=== PATIENT | male | born 1985 | race Caucasian/White ===

== ENCOUNTER 2017-03-14 07:01 | Emergency (ER) | payer MEDICAID ==
[~2017-03-14] VITALS: Ht 5787.1 cm; Wt 60.0 kg
[~2017-03-14 07:01] MED LIST: CYCL-1 PO; NO HOME MEDS
[2017-03-14 07:35] VITALS: BP 116/69
== END 2017-03-14 07:37 | disposition home or self-care (01) ==
LOC: ER 07:02
DX: G89.29 Other chronic pain (principal); R10.13 Epigastric pain; F12.10 Cannabis abuse, uncomplicated; F15.10 Other stimulant abuse, uncomplicated; F11.10 Opioid abuse, uncomplicated; Z90.5 Acquired absence of kidney; Z59.0 Homelessness
CPT/HCPCS: 99281

== ENCOUNTER 2017-11-23 18:53 | Emergency (ER) | payer MEDICAID ==
[~2017-11-23] VITALS: Ht 175.3 cm; Wt 57.2 kg
[~2017-11-23 18:53] MED LIST changes: +CEPH500C5 PO; +HYDR-569 PO; +SULF1TAB49 PO
[2017-11-23 19:09] VITALS: BP 141/81
[2017-11-23] MEDS ORDERED: normal saline 1000ML IV soln IVB STA (19:54)
[2017-11-23 19:56] LABS: BASOPHILS % (AUTO) 0.2 % (0-1); EOSINOPHILS # (AUTO) 0.2 X10'3 (0-0.9); EOSINOPHILS % (AUTO) 1.7 % (0-6); HEMATOCRIT 32.9 % (42.0-52.0); HEMOGLOBIN 10.9 g/dl (14.0-17.9); LYMPHOCYTES # (AUTO) 0.8 X10'3 (1.1-4.8); LYMPHOCYTES % (AUTO) 6.7 % (21-51); MEAN CORPUSCULAR HEMOGLOBIN 24.6 PG (27.0-31.0); MEAN CORPUSCULAR VOLUME 74.5 FL (78-98); MEAN PLATELET VOLUME 7.3 FL (7.4-10.4); MONOCYTES # (AUTO) 0.7 X10'3 (0-0.9); MONOCYTES % (AUTO) 5.8 % (2-12); NEUTROPHILS # (AUTO) 10.1 X10'3 (1.8-7.7); NEUTROPHILS % (AUTO) 85.6 % (42-75); PLATELET COUNT 438 X10'3 (140-440); RED BLOOD COUNT 4.41 X10'6 (4.70-6.10); RED CELL DISTRIBUTION WIDTH 18.2 % (11.5-14.5); WHITE BLOOD COUNT 11.8 X10'3 (4.5-11.0)
[2017-11-23 20:04] LABS: CLARITY,URINE CLEAR (Clear); COLOR,URINE YELLOW (Yellow); GLUCOSE, URINE NEGATIVE (Neg); KETONES,URINE 15 mg/dl (Neg); LEUKOCYTE ESTERASE ,URINE NEGATIVE (Neg); NITRITES, URINE NEGATIVE (Neg); OCCULT BLOOD,URINE NEGATIVE (Neg); PROTEIN,URINE 30 mg/dl (Neg); UA COLLECTION TYPE CLN CATCH MIDSTREAM
[2017-11-23 20:07] LABS: PROTHROMBIN TIME 10.7 SECONDS (9.0-12.0)
[2017-11-23 20:10] LABS: ALANINE AMINOTRANSFERASE 41 U/L (12-78); ALBUMIN 3.1 G/DL (3.4-5.0); ALBUMIN/GLOBULIN RATIO 0.7 (1.1-1.5); ALKALINE PHOSPHATASE 117 IU/L (46-116); ANION GAP 9 (8-16); ASPARTATE AMINO TRANSFERASE 27 U/L (10-37); BILIRUBIN,TOTAL 1.9 MG/DL (0.1-1.0); BLOOD UREA NITROGEN 21 MG/DL (7-18); BUN/CREATININE RATIO 15.2 (5.4-32.0); CHLORIDE 98 MMOL/L (99-107); CREATININE 1.38 MG/DL (0.60-1.10); GLUCOSE 117 MG/DL (70-104); POTASSIUM 4.4 MMOL/L (3.5-5.1); SODIUM 134 MMOL/L (135-145); TOTAL CARBON DIOXIDE 27.2 MMOL/L (24-32); TOTAL PROTEIN 7.7 G/DL (6.4-8.2); eGFR 61 ML/MIN
[2017-11-23 20:24] LABS: BACTERIA,URINE 1+ /HPF (Neg); RBC,URINE 0-2 /HPF (0-2); SQUAMOUS EPITHELIAL CELL,UR FEW /LPF (FEW)
[2017-11-23] MEDS ORDERED: morphine 4 MG/ML inj SYRINge IM ONE (20:40)
[2017-11-23] MEDS ORDERED: famotidine/PF 10 mg/ml inj IV ONE (21:30)
[2017-11-23] MEDS ORDERED: ondansetron/PF 4mg/2ml inj IV ONE (21:30)
== END 2017-11-23 21:38 | disposition home or self-care (01) ==
LOC: ER 18:53
DX: T81.89XA Other complications of procedures, not elsewhere classified, initial encounter (principal); R10.9 Unspecified abdominal pain; F12.90 Cannabis use, unspecified, uncomplicated; F15.90 Other stimulant use, unspecified, uncomplicated; F11.90 Opioid use, unspecified, uncomplicated; Z56.0 Unemployment, unspecified; Z98.890 Other specified postprocedural states; Z90.49 Acquired absence of other specified parts of digestive tract; Z59.0 Homelessness; Y92.9 Unspecified place or not applicable
CPT/HCPCS: 36415; 80053; 81001; 85025; 85610; 87088; 96372; 96374; 96375; 99284; J2270; J2405; J3490; J7030

== ENCOUNTER 2018-03-26 14:30 | Emergency (ER) | payer MEDICAID ==
[~2018-03-26] VITALS: Ht 175.3 cm; Wt 56.0 kg
[~2018-03-26 14:30] MED LIST changes: +HYDR-4383 PO; -HYDR-569 PO; -SULF1TAB49 PO
[2018-03-26 15:07] LABS: BASOPHILS % (AUTO) 0.4 % (0-1); EOSINOPHILS # (AUTO) 0.1 X10'3 (0-0.9); EOSINOPHILS % (AUTO) 0.9 % (0-6); HEMATOCRIT 36.8 % (42.0-52.0); HEMOGLOBIN 11.6 g/dl (14.0-17.9); LYMPHOCYTES # (AUTO) 1.2 X10'3 (1.1-4.8); LYMPHOCYTES % (AUTO) 16.5 % (21-51); MEAN CORPUSCULAR HGB CONC 31.4 % (33.0-36.5); MEAN CORPUSCULAR VOLUME 76.5 FL (78-98); MEAN PLATELET VOLUME 7.3 FL (7.4-10.4); MONOCYTES # (AUTO) 0.4 X10'3 (0-0.9); MONOCYTES % (AUTO) 5.1 % (2-12); NEUTROPHILS # (AUTO) 5.4 X10'3 (1.8-7.7); NEUTROPHILS % (AUTO) 77.1 % (42-75); PLATELET COUNT 563 X10'3 (140-440); RED BLOOD COUNT 4.82 X10'6 (4.70-6.10); RED CELL DISTRIBUTION WIDTH 18.5 % (11.5-14.5)
[2018-03-26 15:34] LABS: ALANINE AMINOTRANSFERASE 35 U/L (12-78); ALBUMIN 3.3 G/DL (3.4-5.0); ALBUMIN/GLOBULIN RATIO 0.7 (1.1-1.5); ALKALINE PHOSPHATASE 135 IU/L (46-116); ANION GAP 11 (8-16); ASPARTATE AMINO TRANSFERASE 15 U/L (10-37); BILIRUBIN,TOTAL 0.4 MG/DL (0.1-1.0); BLOOD UREA NITROGEN 13 MG/DL (7-18); BUN/CREATININE RATIO 9.4 (5.4-32.0); CHLORIDE 101 MMOL/L (99-107); CREATININE 1.39 MG/DL (0.60-1.10); GLUCOSE 108 MG/DL (70-104); POTASSIUM 3.9 MMOL/L (3.5-5.1); SODIUM 141 MMOL/L (135-145); TOTAL CARBON DIOXIDE 29.3 MMOL/L (24-32); TOTAL PROTEIN 7.9 G/DL (6.4-8.2); eGFR 60 ML/MIN
[2018-03-26 16:04] LABS: PARTIAL THROMBOPLASTIN TIME 28 SECONDS (22-32); PROTHROMBIN TIME 10.1 SECONDS (9.0-12.0)
[2018-03-26] MEDS ORDERED: diphenhydrAMINE 50 mg/ml inj IV ONE (16:45)
[2018-03-26] MEDS ORDERED: metoclopramide 5 mg/ml inj IV ONE (16:45)
[2018-03-26] MEDS ORDERED: normal saline 1000ML IV soln IVB ONE (16:45)
[2018-03-26] MEDS ORDERED: ketorolac tromethamine 15mg/ml inj. IV ONE (16:45)
[2018-03-26 17:16] LABS: LIPASE 138 U/L (73-393)
[2018-03-26] MEDS ORDERED: ONDA4TAB6 PO (18:49)
[2018-03-26] MEDS ORDERED: POLY17PO10 PO (18:49)
[2018-03-26 19:00] VITALS: BP 104/65
--- NOTE | 2018-03-26 19:00 | NUR ---
While providing discharge instructions, patient requesting pain medication Rx. Educated patient regarding process of constipation and risks of analgesics with constipation. Patient became angry, stating that he was "tired of people telling me that its constipation when something is going on". He further stated that he had been seen in multiple ER visits without a "better diagnosis". Asked and denied that he has f/u with a specialist. Encouraged patient to f/u with PCP for possible refer to specialist. Patient continues to verbalize dissatisfaction with not being given a "definitive diagnosis" regarding his complaints. Educated patient, hayder tyson, regarding nature of emergency room, limtations of the emergency room, and the need to follow-up with PCP for further care and treatment. Patient states, "well I'm going to gabriela the doctor and this hospital for not giving me an actual diagnosis, this [facility] has fucked up too many times".
== END 2018-03-26 19:00 | disposition home or self-care (01) ==
LOC: ER 14:31
DX: R10.13 Epigastric pain (principal); R10.12 Left upper quadrant pain; K59.00 Constipation, unspecified; R11.0 Nausea; F12.90 Cannabis use, unspecified, uncomplicated; F15.90 Other stimulant use, unspecified, uncomplicated; F11.90 Opioid use, unspecified, uncomplicated; Z90.49 Acquired absence of other specified parts of digestive tract; Z79.899 Other long term (current) drug therapy; Z56.0 Unemployment, unspecified; Z59.0 Homelessness
CPT/HCPCS: 36415; 71045; 80053; 83690; 84145; 85025; 85610; 85730; 87040; 96374; 96375; 99284; J1200; J1885; J2765; J7030

== ENCOUNTER → 2018-03-27 | Emergency (ER) | payer MEDICAID ==
[~2018-03-27] MED LIST changes: +LORazepam 2 mg/ml vial IV ONE; +ONDA4TAB6 PO; +POLY17PO10 PO; +haloperidol lactate 5mg/ml inj IM ONE; +iohexol 300mg/ml 100ml inj. ONE; +normal saline 1000ML IV soln IVB ONE
[2018-03-27 09:59] LABS: CLARITY,URINE CLEAR (Clear); COLOR,URINE YELLOW (Yellow); GLUCOSE, URINE NEGATIVE (Neg); KETONES,URINE NEGATIVE (Neg); LEUKOCYTE ESTERASE ,URINE NEGATIVE (Neg); NITRITES, URINE NEGATIVE (Neg); OCCULT BLOOD,URINE SMALL (Neg); PROTEIN,URINE NEGATIVE (Neg); UROBILINOGEN,URINE 0.2 E.U/dL (0.2-1.0)
[2018-03-27 10:01] LABS: UA COLLECTION TYPE CLN CATCH MIDSTREAM
[2018-03-27 10:05] LABS: BASOPHILS % (AUTO) 0.4 % (0-1); EOSINOPHILS # (AUTO) 0.1 X10'3 (0-0.9); EOSINOPHILS % (AUTO) 1.4 % (0-6); HEMATOCRIT 34.4 % (42.0-52.0); HEMOGLOBIN 10.9 g/dl (14.0-17.9); LYMPHOCYTES % (AUTO) 15.4 % (21-51); MEAN CORPUSCULAR HGB CONC 31.6 % (33.0-36.5); MEAN PLATELET VOLUME 7.3 FL (7.4-10.4); MONOCYTES # (AUTO) 0.4 X10'3 (0-0.9); MONOCYTES % (AUTO) 5.9 % (2-12); NEUTROPHILS % (AUTO) 76.9 % (42-75); PLATELET COUNT 441 X10'3 (140-440); RED BLOOD COUNT 4.53 X10'6 (4.70-6.10); RED CELL DISTRIBUTION WIDTH 18.6 % (11.5-14.5); WHITE BLOOD COUNT 6.6 X10'3 (4.5-11.0)
[2018-03-27 10:08] LABS: BACTERIA,URINE NONE SEEN /HPF (Neg); SQUAMOUS EPITHELIAL CELL,UR FEW /LPF (FEW); WBC,URINE NONE SEEN /HPF (0-4)
[2018-03-27 10:09] LABS: MUCUS STRANDS NONE SEEN /LPF (Neg)
[2018-03-27 10:16] LABS: ALANINE AMINOTRANSFERASE 32 U/L (12-78); ALBUMIN 2.9 G/DL (3.4-5.0); ALBUMIN/GLOBULIN RATIO 0.7 (1.1-1.5); ALKALINE PHOSPHATASE 119 IU/L (46-116); ANION GAP 11 (8-16); ASPARTATE AMINO TRANSFERASE 17 U/L (10-37); BILIRUBIN,TOTAL 0.4 MG/DL (0.1-1.0); BLOOD UREA NITROGEN 14 MG/DL (7-18); BUN/CREATININE RATIO 12.8 (5.4-32.0); CALCIUM 8.5 MG/DL (8.5-10.1); CHLORIDE 102 MMOL/L (99-107); CREATININE 1.09 MG/DL (0.60-1.10); GLUCOSE 110 MG/DL (70-104); LIPASE 94 U/L (73-393); SODIUM 140 MMOL/L (135-145); TOTAL CARBON DIOXIDE 27.3 MMOL/L (24-32); TOTAL PROTEIN 6.9 G/DL (6.4-8.2); eGFR 79 ML/MIN
[2018-03-27 12:04] VITALS: BP 125/74
== END | disposition home or self-care (01) ==
LOC: ER 09:17
DX: G89.29 Other chronic pain (principal); R10.12 Left upper quadrant pain; F12.90 Cannabis use, unspecified, uncomplicated; F15.90 Other stimulant use, unspecified, uncomplicated; F11.90 Opioid use, unspecified, uncomplicated; Z90.49 Acquired absence of other specified parts of digestive tract; Z98.890 Other specified postprocedural states; Z59.0 Homelessness; Z56.0 Unemployment, unspecified; Z79.2 Long term (current) use of antibiotics; Z79.899 Other long term (current) drug therapy
CPT/HCPCS: 36415; 74177; 80053; 81001; 83690; 85025; 96372; 96374; 99284; J1630; J2060; J7030; Q9967

== ENCOUNTER 2021-12-15 23:56 | Emergency (ER) | payer MEDICAID ==
[~2021-12-15] VITALS: Ht 175.3 cm; Wt 47.1 kg
[~2021-12-15 23:56] MED LIST changes: -CEPH500C5 PO; -LORazepam 2 mg/ml vial IV ONE; -POLY17PO10 PO; -haloperidol lactate 5mg/ml inj IM ONE; -iohexol 300mg/ml 100ml inj. ONE; -normal saline 1000ML IV soln IVB ONE
[2021-12-16] MEDS ORDERED: acetaminophen 325mg tablet PO ONE (00:20)
[2021-12-16] MEDS ORDERED: iohexol 300mg/ml 100ml inj. ONE (00:23)
[2021-12-16 00:34] LABS: BASOPHILS # (AUTO) 0.1 X10'3 (0-0.2); BASOPHILS % (AUTO) 0.6 % (0-1); EOSINOPHILS # (AUTO) 0.1 X10'3 (0-0.9); EOSINOPHILS % (AUTO) 1.6 % (0-6); HEMATOCRIT 38.9 % (42.0-52.0); HEMOGLOBIN 13.1 g/dl (14.0-17.9); LYMPHOCYTES # (AUTO) 1.8 X10'3 (1.1-4.8); MEAN CORPUSCULAR HEMOGLOBIN 29.2 PG (27.0-31.0); MEAN CORPUSCULAR HGB CONC 33.6 g/dL (33.0-36.5); MEAN CORPUSCULAR VOLUME 86.6 FL (78-98); MEAN PLATELET VOLUME 6.8 FL (7.4-10.4); MONOCYTES # (AUTO) 0.6 X10'3 (0-0.9); MONOCYTES % (AUTO) 6.4 % (2-12); NEUTROPHILS # (AUTO) 6.1 X10'3 (1.8-7.7); NEUTROPHILS % (AUTO) 70.4 % (42-75); PLATELET COUNT 468 X10'3 (140-440); RED BLOOD COUNT 4.48 X10'6 (4.70-6.10); RED CELL DISTRIBUTION WIDTH 15.9 % (11.5-14.5); WHITE BLOOD COUNT 8.7 X10'3 (4.5-11.0)
[2021-12-16 00:44] LABS: ALANINE AMINOTRANSFERASE 21 U/L (12-78); ALBUMIN 3.5 G/DL (3.4-5.0); ALBUMIN/GLOBULIN RATIO 0.9 (1.1-1.5); ALKALINE PHOSPHATASE 92 IU/L (46-116); AMYLASE 87 U/L (25-115); ANION GAP 11 (8-16); ASPARTATE AMINO TRANSFERASE 16 U/L (10-37); BILIRUBIN,TOTAL 0.3 MG/DL (0.1-1.0); BLOOD UREA NITROGEN 15 MG/DL (7-18); BUN/CREATININE RATIO 12.1 (5.4-32.0); CALCIUM 8.8 MG/DL (8.5-10.1); CHLORIDE 102 MMOL/L (99-107); CREATININE 1.24 MG/DL (0.60-1.10); GLUCOSE 123 MG/DL (70-104); LIPASE 111 U/L (73-393); MAGNESIUM 2.4 MG/DL (1.5-2.4); POTASSIUM 3.8 MMOL/L (3.5-5.1); SODIUM 141 MMOL/L (135-145); TOTAL CARBON DIOXIDE 27.8 MMOL/L (24-32); TOTAL PROTEIN 7.5 G/DL (6.4-8.2); eGFR 67 ML/MIN
[2021-12-16 00:46] VITALS: BP 114/75
[2021-12-16] MEDS ORDERED: morphine 4 MG/ML inj SYRINge IV ONE ×2 (01:35→03:30)
--- NOTE | 2021-12-16 03:27 | NUR ---
patient crying in bed provider notified , verbal given by provider for 4 mg morphine ivp once
== END 2021-12-16 04:52 | disposition home or self-care (01) ==
LOC: ER 23:56
DX: R10.12 Left upper quadrant pain (principal); F15.10 Other stimulant abuse, uncomplicated; F12.10 Cannabis abuse, uncomplicated; Z59.00 Homelessness unspecified; Z56.0 Unemployment, unspecified; Z90.49 Acquired absence of other specified parts of digestive tract; Z79.899 Other long term (current) drug therapy
CPT/HCPCS: 36415; 74177; 80053; 82150; 83690; 83735; 85025; 96374; 96376; 99285; J2270; J3490; J7030; Q9967; 96375

== ENCOUNTER 2022-01-30 19:47 | Emergency (ER) | payer MEDICAID ==
[~2022-01-30] VITALS: Ht 175.3 cm; Wt 63.0 kg
[2022-01-30 20:04] VITALS: BP 131/76
[2022-01-30] MEDS ORDERED: sulfamethoxazole/trimethoprim DS (800/160mg) tablet PO ONE (21:55)
[2022-01-30] MEDS ORDERED: cephalexin 500mg capsule PO ONE (21:55)
[2022-01-30] MEDS ORDERED: SULF1TAB49 PO (21:57)
[2022-01-30] MEDS ORDERED: CEPH500C81 PO (21:57)
== END 2022-01-30 22:26 | disposition home or self-care (01) ==
LOC: ER 19:48
DX: L02.414 Cutaneous abscess of left upper limb (principal); F12.10 Cannabis abuse, uncomplicated; F15.10 Other stimulant abuse, uncomplicated; Z59.00 Homelessness unspecified; Z56.0 Unemployment, unspecified; Z79.899 Other long term (current) drug therapy
CPT/HCPCS: 99283; A6258; A6449

== ENCOUNTER 2022-02-03 16:18 | Emergency (ER) | payer MEDICAID ==
[~2022-02-03] VITALS: Ht 175.3 cm; Wt 63.0 kg
[~2022-02-03 16:18] MED LIST changes: +CEPH500C81 PO; -CYCL-1 PO; -HYDR-4383 PO; -NO HOME MEDS; -ONDA4TAB6 PO; +SULF1TAB49 PO
[2022-02-03 17:09] VITALS: BP_SYST 124
[2022-02-03 18:00] LABS: BASOPHILS # (AUTO) 0.1 X10'3 (0-0.2); EOSINOPHILS # (AUTO) 0.1 X10'3 (0-0.9); HEMATOCRIT 40.8 % (42.0-52.0); HEMOGLOBIN 13.5 g/dl (14.0-17.9); LYMPHOCYTES # (AUTO) 2.4 X10'3 (1.1-4.8); MEAN CORPUSCULAR HGB CONC 33.1 g/dL (33.0-36.5); MEAN PLATELET VOLUME 6.5 FL (7.4-10.4); MONOCYTES # (AUTO) 0.6 X10'3 (0-0.9); NEUTROPHILS # (AUTO) 11.7 X10'3 (1.8-7.7); RED BLOOD COUNT 4.65 X10'6 (4.70-6.10); WHITE BLOOD COUNT 14.9 X10'3 (4.5-11.0)
[2022-02-03 18:01] LABS: BASOPHILS % (AUTO) 0.6 % (0-1); LYMPHOCYTES % (AUTO) 16.3 % (21-51); MEAN CORPUSCULAR VOLUME 87.7 FL (78-98); MONOCYTES % (AUTO) 3.8 % (2-12); NEUTROPHILS % (AUTO) 78.3 % (42-75); PLATELET COUNT 737 X10'3 (140-440); RED CELL DISTRIBUTION WIDTH 15.1 % (11.5-14.5)
[2022-02-03 18:22] LABS: ALANINE AMINOTRANSFERASE 32 U/L (12-78); ALBUMIN 3.3 G/DL (3.4-5.0); ALBUMIN/GLOBULIN RATIO 0.6 (1.1-1.5); ALKALINE PHOSPHATASE 129 IU/L (46-116); ANION GAP 11 (8-16); ASPARTATE AMINO TRANSFERASE 17 U/L (10-37); BILIRUBIN,TOTAL 0.2 MG/DL (0.1-1.0); BLOOD UREA NITROGEN 14 MG/DL (7-18); BUN/CREATININE RATIO 13.1 (5.4-32.0); CALCIUM 9.2 MG/DL (8.5-10.1); CHLORIDE 101 MMOL/L (99-107); CREATININE 1.07 MG/DL (0.60-1.10); GLUCOSE 98 MG/DL (70-104); POTASSIUM 4.2 MMOL/L (3.5-5.1); SODIUM 140 MMOL/L (135-145); TOTAL CARBON DIOXIDE 28.2 MMOL/L (24-32); TOTAL PROTEIN 8.4 G/DL (6.4-8.2); eGFR 79 ML/MIN
[2022-02-03 21:30] LABS: CLARITY,URINE CLOUDY (Clear); COLOR,URINE YELLOW (Yellow); GLUCOSE, URINE NEGATIVE (Neg); KETONES,URINE NEGATIVE (Neg); LEUKOCYTE ESTERASE ,URINE TRACE (Neg); NITRITES, URINE NEGATIVE (Neg); OCCULT BLOOD,URINE NEGATIVE (Neg); PROTEIN,URINE NEGATIVE (Neg); UROBILINOGEN,URINE 0.2 E.U/dL (0.2-1.0)
[2022-02-03 21:35] LABS: UA COLLECTION TYPE VOIDED
[2022-02-03] MEDS ORDERED: ONDA4TAB12 PO (21:36)
[2022-02-03 21:47] LABS: URINE AMPHETAMINE SCREEN POSITIVE (Neg); URINE BARBITUATE SCREEN NEGATIVE (Neg); URINE BENZODIAZEPINES SCREEN NEGATIVE (Neg); URINE CANNABINOID SCREEN POSITIVE (Neg); URINE COCAINE SCREEN NEGATIVE (Neg); URINE METHADONE SCREEN NEGATIVE (Neg); URINE OPIATE SCREEN NEGATIVE (Neg); URINE PHENCYCLIDINE SCREEN NEGATIVE (Neg)
[2022-02-03 21:51] LABS: MUCUS STRANDS FEW /LPF (Neg); SQUAMOUS EPITHELIAL CELL,UR MODERATE /LPF (FEW); WBC,URINE TNTC /HPF (0-4)
[2022-02-03 21:52] LABS: BACTERIA,URINE FEW /HPF (Neg); CAL OXALATE CRYSTALS 3+ /HPF (NEGATIVE); RBC,URINE 0-2 /HPF (0-2); TRANSITIONAL EPI CELLS,URINE FEW /HPF
== END 2022-02-03 21:41 | disposition home or self-care (01) ==
LOC: ER 16:18
DX: R11.2 Nausea with vomiting, unspecified (principal); Z20.822 Contact with and (suspected) exposure to COVID-19; R11.0 Nausea; F17.200 Nicotine dependence, unspecified, uncomplicated; F12.10 Cannabis abuse, uncomplicated; F15.10 Other stimulant abuse, uncomplicated; Z59.00 Homelessness unspecified; Z56.0 Unemployment, unspecified; Z90.49 Acquired absence of other specified parts of digestive tract; Z79.899 Other long term (current) drug therapy
CPT/HCPCS: 36415; 80053; 80305; 81001; 84145; 85025; 87088; 87502; 87503; 87635; 93005; 99284; C9803

== ENCOUNTER 2022-09-28 05:59 | Emergency (ER) | payer MEDICAID ==
[~2022-09-28 05:59] MED LIST changes: -CEPH500C81 PO; +ONDA4TAB12 PO; -SULF1TAB49 PO
== END 2022-09-28 06:18 | disposition left against medical advice (07) ==
LOC: ER 05:59
DX: R10.9 Unspecified abdominal pain (principal); Z53.21 Procedure and treatment not carried out due to patient leaving prior to being seen by health care provider

== ENCOUNTER 2023-04-29 10:47 | Emergency (ER) | payer MEDICAID ==
[~2023-04-29] VITALS: Ht 175.3 cm; Wt 56.7 kg
[2023-04-29 10:50] VITALS: BP 179/104; PULSE 126; RESP 16; TEMP 98; O2SAT 99
== END 2023-04-29 11:08 | disposition left against medical advice (07) ==
LOC: ER 10:47
DX: R07.81 Pleurodynia (principal); Z53.21 Procedure and treatment not carried out due to patient leaving prior to being seen by health care provider
CPT/HCPCS: 99281

== ENCOUNTER 2024-07-27 19:05 | Emergency (ER) | payer SELFPAY ==
[~2024-07-27] VITALS: Ht 180.3 cm; Wt 74.0 kg
[~2024-07-27 19:05] MED LIST changes: +ONDA-243 PO; -ONDA4TAB12 PO
--- NOTE | 2024-07-27 19:15 | Physician Documentation ---
History of Present Illness ~ Stated Complaint: VOMITING Time Seen by MD: 19:10 OK to notify your PCP?: No Primary Medical Doctor: mario [facility] HPI This is a 39-year-old residential challenged gentleman who was brought to us from [place] for evaluation of generalized weakness. He states that for the last 24 hours he has been experiencing weakness, dizziness, and diarrhea. Most recent bowel movement was immediately prior to arrival that he described �came out like butter�. No palliating or aggravating factors for his weakness were elicited but he does feel that it began after he got food poisoning from eating [employer]. This is similar to prior foot poisoning. Denies any fever, chills, chest pain, or abdominal pain. He smokes �occasionally� and he does drugs also �occasionally� however he would not specify how often of the occasions. Medication Reconciliation Allergies: Coded Allergies: No Known Allergies (Unverified , 07/27/24) Scheduled PRN ONDANSETRON ODT 4mg tablet (Ondansetron Odt), 1 TABLET PO Q6H PRN for nausea/vomiting Past Medical History Past Medical History: *GI/HEPATOBILIARY*, Psychosis Past Surgical History: abdominal surgery, cholecystectomy, other Other Past Surgical History: nephrectomy Alcohol Use: None Drug Use: marijuana, methamphetamine, heroin Lives In: Homeless Occupation: unemployed Review of Systems ROS 10 point review of systems was performed and unless noted above in HPI is negative for acute process/complaint. Physical Exam Physical Exam Physical examination: GENERAL: Awake, alert, oriented, GCS 15, no apparent distress, non-toxic appe aring, answers questions, follows commands appropriately. Disheveled gentleman with obvious stigmata of homelessness. HEENT: Atraumatic, normocephalic, pupils equal, extraocular muscles intact Active gross movements, sclerae anicteric, mucus membranes moist, no stridor. NECK: Midline, no JVD CARDIOVASCULAR: Good skin perfusion without evidence of pallor, mottling. PULMONARY: Nonlabored, symmetric chest rise, no audible wheezing, no accessory muscle use, no respiratory distress, speaking in full sentences. GASTROINTESTINAL: Not distended. NEUROLOGIC: Lucid with normal mental status. Normal facial symmetry. Moves all extremities symmetrically and with purpose. No truncal ataxia. Speech is fluid without evidence of dysarthria or aphasia, no focal deficits appreciated. EXTREMITIES: Acute deformities Skin: warm, dry PSYCHIATRIC: Normal affect, normal insight, normal concentration. Focused exam: [] Progress Results/Orders Results/Orders Orders - NISHANT COYNE DO Hs Troponin I W Calculations (07/27/24 20:20) Urinalysis (07/27/24 20:27) Drug Screen, Urine (07/27/24 20:27) Completed Orders - NISHANT COYNE DO Cbc/Diff (07/27/24 19:13) PHOS (07/27/24 19:13) MG (07/27/24 19:13) Hs Troponin I W Calculations (07/27/24 19:13) CMP (07/27/24 19:13) Normal Saline 1000ml (Sodium Chloride 10 (07/27/24 20:20) Normal Saline 1000ml (Sodium Chloride 10 (07/27/24 20:20) PBNP (07/27/24 19:30) BMP (07/28/24 00:20) Medications Received in ER Medications (Trade) Dose Ordered Sig/Jimi Route PRN Reason Start Time Stop Time Status Last Admin Dose Admin Sodium Chloride 1,000 ml @ 1,000 mls/hr ONCE ONCE IV 07/27/24 20:20 07/27/24 21:19 DC 07/27/24 23:30 1,000 MLS/HR Sodium Chloride 1,000 ml @ 1,000 mls/hr ONCE ONCE IV 07/27/24 20:20 07/27/24 21:19 DC 07/27/24 22:40 1,000 MLS/HR Vital Signs 07/27/24 07/27/24 07/27/24 07/27/24 19:39 22:20 22:40 23:30 Temp 98.6 Pulse 102 128 88 Resp 20 16 B/P (MAP) 156/98 98/67 (77) 108/68 (81) Pulse Ox 100 98 O2 Flow Rate 0 07/28/24 07/28/24 00:30 01:33 Pulse 92 87 Resp 14 15 B/P (MAP) 104/64 (77) 97/66 (76) Pulse Ox 96 97 O2 Flow Rate 0 0 Laboratory Tests Test 07/27/24 19:30 07/28/24 00:43 White Blood Count 7.9 Red Blood Count 5.15 Hemoglobin 11.9 L Hematocrit 38.2 L Mean Corpuscular Volume 74.1 L Mean Corpuscular Hemoglobin 23.1 L Mean Corpuscular Hemoglobin Concent 31.2 L Red Cell Distribution Width 18.7 H Platelet Count 880 H Mean Platelet Volume 7.3 L Neutrophils (%) (Auto) 57.0 Lymphocytes (%) (Auto) 31.8 Monocytes (%) (Auto) 10.3 Eosinophils (%) (Auto) 0.2 Basophils (%) (Auto) 0.7 Neutrophils # (Auto) 4.5 Lymphocytes # (Auto) 2.5 Monocytes # (Auto) 0.8 Eosinophils # (Auto) 0.0 Basophils # (Auto) 0.1 CBC Comment Platelet Estimate Increased Large Platelets Few Red Blood Cell Morphology Perf Basophilic Stippling Anisocytosis 3+ Microcytosis 1+ Macrocytosis Few Sodium Level 148 H 146 H Potassium Level 4.1 2.9 *L Chloride Level 93 L 99 Carbon Dioxide Level 30.9 39.6 H Anion Gap 24 H 7 L Blood Urea Nitrogen 27 H 27 H Creatinine 3.73 H 2.91 H Estimated GFR/1.73 m2 18 25 BUN/Creatinine Ratio 7.2 L 9.3 L Glucose Level 147 H 101 Calcium Level 9.5 7.6 L Phosphorus Level 9.8 H Magnesium Level 2.6 H Total Bilirubin 1.0 Aspartate Amino Transf (AST/SGOT) 14 Alanine Aminotransferase (ALT/SGPT) 19 Alkaline Phosphatase 99 Troponin I High Sensitivity 12 Pro-B-Type Natriuretic Peptide 250 H Total Protein 7.5 Albumin 3.3 L 2.5 L Globulin 4.2 Albumin/Globulin Ratio 0.8 L Chemistry Comments Medical Decision Making Findings Facility Status: ED Holds, [facility] process The plan was discussed with the patient, who demonstrates clear understanding of the plan and is in agreement with the plan unless otherwise noted in the chart. All questions have been answered, all concerns were addressed unless otherwise documented. I was available throughout their ED stay for frequent reassessment and questions. Differential Diagnoses (considered and possible or likely): [Hypoglycemia, dehydration, electrolyte derangement, viral gastroenteritis, highly unlikely to represent acute intra-abdominal process requiring surgical intervention] ??Differential Diagnoses (considered and unlikely, not requiring evaluation currently): [No evidence of traumatic injury] MDM Data Please see HPI for the following: Independent Historians and external Records Review. Historian: [Patient] Independent Historians: ?[EMS] Medication Management: [Reviewed medication list] Social History and determinants: [Reviewed] Please see the body of the note for the following: Any independent interpretations of ECG, imaging studies. All vitals signs/haemodynamics, ordered tests were independently reviewed and interpreted by myself. Nursing triage complaint and vitals reviewed, additional nursing notes were reviewed as available and I agree unless otherwise noted or documented in contradiction in the chart Vital Signs: Independently reviewed Labs: Independently interpreted Imaging: Independently interpreted Old Medical Records: Independently reviewed, see HPI for relevant summary and information Pulse Oximetry: [99%] interpreted as [normal on room air] by me Additionally notably showing: [Hemodynamically stable. Laboratory workup notable for severe ALLYSON with a creatinine of 3.7 compared to one as his baseline in 2022.] Repeat metabolic panel shows marked improvement of creatinine. Most likely this is related to dehydration. Tests considered but not ordered include: [Imaging does not appear to be necessary] Social Determinants of Health Impact: Patient was evaluated in [facility] [place] access to healthcare due to below par ratio of patient to medical providers. [] Comorbid Conditions Impacting Present Evaluation and Care/Treatment: [Methamphetamine abuse] Management Discussions with other Healthcare Providers: [] Treatment and Disposition Medication Management (Given or considered): [Fluid resuscitation was provided for treatment of clinically and/or laboratory apparent dehydration.]. See EMR f or details Consideration for Hospitalization/Escalation/Deescalation of Care: Admission for observation has been considered, [however the patient is able to tolerate p.o., their symptoms are controlled, they are able to rely on oral medications, and their chief complaint/diagnosis can be managed on outpatient basis.] ?ED Course:?[No clinical deterioration.] ?Shared decision making: Patient is hemodynamically stable for discharge home with follow with their primary care provider. [ ] Specific and cautious return precautions provided and discussed with full understanding. Any incidental findings were also discussed and follow up recommendations given. [] All questions answered. Patient/family were able to verbalize back return precautions. Patient/family agree to plan. Copies of imaging and laboratory studies were provided. Code status:?FULL Please see the full Electronic Medical Record for full details of nursing documentation, medications list, other records of complete past medical history and conditions, vital signs, laboratory studies, and any radiologic study interpretations by radiologists. Portions of this note were completed using [employer] dictation software and as a result there may exist minor errors in spelling. I have reviewed elements of past family and social history and agree as included in note. Departure Disposition: 01 HOME / SELF CARE / HOMELESS Impression: Primary Impression: Acute kidney injury Additional Impressions: Generalized weakness Aggressive behavior Nausea Dehydration Condition: Improved Discharge Instructions: Acute Kidney Injury, Adult, Dehydration, Adult Additional Instructions: You need to make sure that you hydrate adequately, or your kidneys we will suffer irreparable damage and you will end up on dialysis. Please consider stopping using drugs. Referrals: NO PRIMARY CARE PROVIDER (PCP) Education Educated: Patient Educated regarding: diagnosis, treatment, prognosis, need for follow up Signature Scribe Signature: No scribe Attestation: This note accurately reflects clinical decisions, work performed by myself, DO STANFORD Quintanilla NICHOLAS M DO July 27, 2024 19:15
[2024-07-27 19:39] VITALS: TEMP 98.6
[2024-07-27 19:45] LABS: BASOPHILS # (AUTO) 0.1 X10'3 (0-0.2); EOSINOPHILS % (AUTO) 0.2 % (0-6); LYMPHOCYTES # (AUTO) 2.5 X10'3 (1.1-4.8); MEAN PLATELET VOLUME 7.3 FL (7.4-10.4); MONOCYTES # (AUTO) 0.8 X10'3 (0-0.9)
[2024-07-27 19:46] LABS: BASOPHILS % (AUTO) 0.7 % (0-1); HEMATOCRIT 38.2 % (42.0-52.0); HEMOGLOBIN 11.9 g/dl (14.0-17.9); LYMPHOCYTES % (AUTO) 31.8 % (21-51); MEAN CORPUSCULAR HEMOGLOBIN 23.1 PG (27.0-31.0); MEAN CORPUSCULAR HGB CONC 31.2 g/dL (33.0-36.5); MEAN CORPUSCULAR VOLUME 74.1 FL (78-98); MONOCYTES % (AUTO) 10.3 % (2-12); NEUTROPHILS # (AUTO) 4.5 X10'3 (1.8-7.7); PLATELET COUNT 880 X10'3 (140-440); RED BLOOD COUNT 5.15 X10'6 (4.70-6.10); RED CELL DISTRIBUTION WIDTH 18.7 % (11.5-14.5); WHITE BLOOD COUNT 7.9 X10'3 (4.5-11.0)
[2024-07-27 20:09] LABS: ALBUMIN 3.3 G/DL (3.4-5.0); ALBUMIN/GLOBULIN RATIO 0.8 (1.1-1.5); ALKALINE PHOSPHATASE 99 IU/L (46-116); ANION GAP 24 (8-16); BLOOD UREA NITROGEN 27 MG/DL (7-18); BUN/CREATININE RATIO 7.2 (10.0-20.0); CALCIUM 9.5 MG/DL (8.5-10.1); CHLORIDE 93 MMOL/L (99-107); CREATININE 3.73 MG/DL (0.60-1.10); GLUCOSE 147 MG/DL (70-104); MAGNESIUM 2.6 MG/DL (1.5-2.4); POTASSIUM 4.1 MMOL/L (3.5-5.1); SODIUM 148 MMOL/L (135-145); TOTAL CARBON DIOXIDE 30.9 MMOL/L (24-32); TOTAL PROTEIN 7.5 G/DL (6.4-8.2); eCRCL 28 ML/MIN; eGFR 18 ML/MIN
[2024-07-27 20:16] LABS: ALANINE AMINOTRANSFERASE 19 U/L (12-78); ASPARTATE AMINO TRANSFERASE 14 U/L (10-37); PHOSPHORUS 9.8 MG/DL (2.3-4.5)
[2024-07-27 20:19] LABS: PLATELET ESTIMATE INCREASED
[2024-07-27 20:21] LABS: ANISOCYTOSIS 3+; MICROCYTOSIS 1+
[2024-07-27 20:22] LABS: LARGE PLATELETS FEW
[2024-07-27 20:45] LABS: PRO BRAIN NATRIURETIC PEPTIDE 250 PG/ML (0-125)
[2024-07-27] MEDS: normal saline 1000ml 1,000 ML IV ONE ×2 (22:40→23:30)
[2024-07-28 01:17] LABS: ALBUMIN 2.5 G/DL (3.4-5.0); ANION GAP 7 (8-16); BLOOD UREA NITROGEN 27 MG/DL (7-18); BUN/CREATININE RATIO 9.3 (10.0-20.0); CALCIUM 7.6 MG/DL (8.5-10.1); CHLORIDE 99 MMOL/L (99-107); CREATININE 2.91 MG/DL (0.60-1.10); GLUCOSE 101 MG/DL (70-104); SODIUM 146 MMOL/L (135-145); TOTAL CARBON DIOXIDE 39.6 MMOL/L (24-32); eCRCL 36 ML/MIN; eGFR 25 ML/MIN
[2024-07-28 01:24] LABS: POTASSIUM 2.9 MMOL/L (3.5-5.1)
[2024-07-28 01:33] VITALS: BP 97/66; PULSE 87; RESP 15; O2SAT 97
== END 2024-07-28 02:38 | disposition home or self-care (01) ==
LOC: ER 19:05
DX: N17.9 Acute kidney failure, unspecified (principal); E86.0 Dehydration; F12.90 Cannabis use, unspecified, uncomplicated; F15.90 Other stimulant use, unspecified, uncomplicated; F11.90 Opioid use, unspecified, uncomplicated; F17.200 Nicotine dependence, unspecified, uncomplicated; Z90.49 Acquired absence of other specified parts of digestive tract
CPT/HCPCS: 36415; 80048; 80053; 83735; 83880; 84100; 84484; 85008; 85025; 96360; 96361; 99285; J7030